=== PATIENT | male | born 1975 | race Hispanic/Latino ===

== ENCOUNTER 2020-01-27 16:00 | Inpatient (IN) | payer MEDICAID, OTHER ==
[~2020-01-27] VITALS: Ht 170.2 cm; Wt 87.7 kg
[~2020-01-27 16:00] MED LIST: FURO-152 PO; LACT10SO9 PO
[2020-01-27 17:33] LABS: BASOPHILS % (AUTO) 1.5 % (0.0-5.0); EOSINOPHILS % (AUTO) 4.6 % (0.0-8.0); HEMATOCRIT 26.2 % (42-54); LYMPHOCYTES % (AUTO) 31.3 % (21.0-51.0); MEAN CORPUSCULAR HEMOGLOBIN 26.9 pg (27.0-33.0); MEAN CORPUSCULAR HGB CONC 32.1 g/dL (32.0-36.0); MONOCYTES % (AUTO) 8.7 % (3.0-13.0); NEUTROPHILS % (AUTO) 53.9 % (40.0-77.0); PLATELET COUNT (AUTO) 45 K/uL (130-400); RED BLOOD CELL COUNT(AUTO) 3.12 MIL/uL (4.50-6.20); RED CELL DISTRIBUTION WIDTH 17.6 % (11.0-15.5)
[2020-01-27 17:53] LABS: INR 1.92 (0.85-1.15); PARTIAL THROMBOPLASTIN TIME 34.9 SEC (26.3-35.5); PROTHROMBIN TIME 19.7 SEC (9.6-11.6)
[2020-01-27 18:11] LABS: ALBUMIN 2.1 g/dL (3.5-5.0); CREATININE 0.7 mg/dL (0.5-1.5); TOTAL PROTEIN, SERUM 7.7 g/dL (6.0-8.3)
[2020-01-27 18:20] LABS: POTASSIUM 2.9 mmol/L (3.5-5.1)
[2020-01-27] MEDS ORDERED: ONDANSETRON HCL 4 MG/2 ML VIAL IV PRN (19:30)
[2020-01-27] MEDS: FAMOTIDINE/PF 20 MG/2 ML VIAL IV SCH (21:00)
[2020-01-27] MEDS: LACTULOSE 20 GM/30 ML UDCUP PO SCH (21:00)
[2020-01-27] MEDS ORDERED: LACTULOSE 20 GM/30 ML UDCUP ONE (22:20)
[2020-01-27] MEDS ORDERED: POTASSIUM CHLORIDE 10% ELIXIR 20 MEQ/15 ML UDCUP ONE (22:20)
[2020-01-27] MEDS ORDERED: POTASSIUM CHLORIDE 20MEQ/100ML 100 ML IV ONE (22:20)
[2020-01-27] MEDS ORDERED: HYDROMORPHONE 1 MG/1 ML AMP ONE (22:21)
[2020-01-27] MEDS ORDERED: FAMOTIDINE/PF 20 MG/2 ML VIAL IV ONE (22:22)
[2020-01-27] MEDS ORDERED: HYDROMORPHONE HCL 0.5 MG/0.5 ML ML IVP ONE (23:30)
[2020-01-28] VITALS (7 sets, daily range): BP systolic 106–161; BP diastolic 57–76
[2020-01-28] MEDS: LIDOCAINE HCL-MPF 1% 2ML VIAL IV PRN ×2 (00:43→09:03)
[2020-01-28] MEDS: POTASSIUM CHLORIDE 20MEQ/100ML 100 ML IV PRN ×2 (00:43→09:03)
[2020-01-28 06:53] LABS: BASOPHILS % (AUTO) 1.2 % (0.0-5.0); EOSINOPHILS % (AUTO) 4.3 % (0.0-8.0); HEMATOCRIT 26.3 % (42-54); LYMPHOCYTES % (AUTO) 36.2 % (21.0-51.0); MEAN CORPUSCULAR HEMOGLOBIN 26.2 pg (27.0-33.0); MEAN CORPUSCULAR HGB CONC 30.8 g/dL (32.0-36.0); MEAN CORPUSCULAR VOLUME 85.1 fL (79-99); MONOCYTES % (AUTO) 14.1 % (3.0-13.0); NEUTROPHILS % (AUTO) 43.6 % (40.0-77.0); PLATELET COUNT (AUTO) 32 K/uL (130-400); RED BLOOD CELL COUNT(AUTO) 3.09 MIL/uL (4.50-6.20); RED CELL DISTRIBUTION WIDTH 17.5 % (11.0-15.5); WHITE BLOOD COUNT (AUTO) 1.6 K/uL (4.8-10.8)
[2020-01-28 07:04] LABS: ALBUMIN 1.9 g/dL (3.5-5.0); BILIRUBIN,TOTAL 2.6 mg/dL (0.2-1.0); CREATININE 0.7 mg/dL (0.5-1.5); MAGNESIUM 1.3 mg/dL (1.80-2.40); TOTAL PROTEIN, SERUM 7.2 g/dL (6.0-8.3)
[2020-01-28 07:08] LABS: POTASSIUM 2.8 mmol/L (3.5-5.1)
[2020-01-28 07:22] LABS: B-TYPE NATRIURETIC PEPTIDE 52 pg/mL (0-100)
[2020-01-28] MEDS: FAMOTIDINE/PF 20 MG/2 ML VIAL IV SCH (09:02)
[2020-01-28] MEDS: LACTULOSE 20 GM/30 ML UDCUP PO SCH ×2 (09:02→20:01)
--- NOTE | 2020-01-28 12:31 | NUR ---
RD Notification Pt admitted for Liver cirrhosis, exacerbation. Pt NPO at time of screen. Diet advanced to GI Soft/Cook. Recommend to add Heart healthy diet, 6 small meals per day, Fluid restriction 1500mL/day secondary to Anasarca/3+ BLE pitting edema. Pt also with PCM;Recommend to add 30mL ProMod BID. RD to continue to monitor. Please notify as additional nutrition concerns arise. Thank you. Addendum: 01/28/20 at [address] Amended: Links added.
[2020-01-28] MEDS: CYANOCOBALAMIN (VITAMIN B-12) 1,000 MCG TABLET PO SCH (12:41)
[2020-01-28] MEDS: FAMOTIDINE 20MG TAB 20 MG TAB PO SCH ×2 (12:41→20:02)
[2020-01-28] MEDS: FOLIC ACID 1 MG TABLET PO SCH (12:41)
[2020-01-28] MEDS: FERROUS SULFATE 325 MG TABLET.DR PO SCH ×2 (12:41→20:02)
[2020-01-28] MEDS: MAGNESIUM OXIDE 400 MG TABLET PO SCH (12:42)
[2020-01-28] MEDS ORDERED: POTASSIUM CHLORIDE 20 MEQ ERTAB PO ONE (12:43)
[2020-01-28] MEDS: FUROSEMIDE 10 MG/ML 4ML VIAL IV SCH (12:43)
[2020-01-28] MEDS: POTASSIUM CHLORIDE 20 MEQ ERTAB PO SCH ×2 (12:44→20:02)
[2020-01-28] MEDS: MAGNESIUM 2GM PREMIX 50ML 50 ML IV PRN (12:48)
[2020-01-28] MEDS: FUROSEMIDE 10 MG/ML 2ML VIAL IV SCH (18:14)
[2020-01-29 04:00] VITALS: BP 115/61
[2020-01-29] MEDS: FUROSEMIDE 10 MG/ML 2ML VIAL IV SCH ×2 (04:37→18:17)
[2020-01-29 05:16] LABS: BASOPHILS % (AUTO) 1.1 % (0.0-5.0); EOSINOPHILS % (AUTO) 4.4 % (0.0-8.0); HEMATOCRIT 27.2 % (42-54); MEAN CORPUSCULAR HEMOGLOBIN 26.9 pg (27.0-33.0); MEAN CORPUSCULAR VOLUME 84.2 fL (79-99); MONOCYTES % (AUTO) 13.7 % (3.0-13.0); NEUTROPHILS % (AUTO) 51.3 % (40.0-77.0); PLATELET COUNT (AUTO) 29 K/uL (130-400); RED BLOOD CELL COUNT(AUTO) 3.23 MIL/uL (4.50-6.20); RED CELL DISTRIBUTION WIDTH 17.2 % (11.0-15.5); WHITE BLOOD COUNT (AUTO) 1.8 K/uL (4.8-10.8)
[2020-01-29 05:38] LABS: BILIRUBIN,TOTAL 3.4 mg/dL (0.2-1.0); CREATININE 0.7 mg/dL (0.5-1.5); POTASSIUM 3.4 mmol/L (3.5-5.1); TOTAL PROTEIN, SERUM 7.4 g/dL (6.0-8.3)
[2020-01-29] MEDS: MAGNESIUM 2GM PREMIX 50ML 50 ML IV PRN (06:39)
[2020-01-29 08:00] VITALS: BP 132/82
[2020-01-29] MEDS: FOLIC ACID 1 MG TABLET PO SCH ×2 (10:01→10:16)
[2020-01-29] MEDS: FERROUS SULFATE 325 MG TABLET.DR PO SCH ×2 (10:01→19:36)
[2020-01-29] MEDS: CYANOCOBALAMIN (VITAMIN B-12) 1,000 MCG TABLET PO SCH ×2 (10:01→10:16)
[2020-01-29] MEDS: FAMOTIDINE 20MG TAB 20 MG TAB PO SCH ×3 (10:01→19:36)
[2020-01-29] MEDS: LACTULOSE 20 GM/30 ML UDCUP PO SCH ×2 (10:02→19:36)
[2020-01-29] MEDS: POTASSIUM CHLORIDE 20 MEQ ERTAB PO SCH ×2 (10:02→13:55)
[2020-01-29] MEDS: MAGNESIUM OXIDE 400 MG TABLET PO SCH (10:16)
[2020-01-29] MEDS: FUROSEMIDE 10 MG/ML 4ML VIAL IV SCH (10:16)
[2020-01-29 11:00] VITALS: BP 117/67
[2020-01-29 16:00] VITALS: BP 114/68
--- NOTE | 2020-01-29 16:19 | NUR ---
INITIAL MET W/ PATIENT AND SUKUMAR AT BEDSIDE FOR DC PLANNING. STATE THEY HAVE JUST RECENTLY STARTED GOING TO [facility] IN [place] ON [address] . INDEPENDENT, NO DME, LIVES W GIRLFRIEND PAULETTE WHO WILL PROVIDE TRANSPORT HOME [employer] PKT GIVEN . RECENT RE ADMIT DCP HOME
[2020-01-29] MEDS: ALBUMIN (HUMAN) 25% 100 ML IV SCH (18:17)
[2020-01-29] MEDS: DEXTROSE 5 % AND 0.9 % NACL 1,000 ML IV SCH (18:18)
[2020-01-29 19:37] VITALS: BP 116/66
[2020-01-29] MEDS ORDERED: HYDROXYZINE HCL 50 MG/ML VIAL IM PRN (21:15)
[2020-01-29] MEDS ORDERED: HYDROXYZINE HCL 25 MG TABLET ONE (21:18)
--- NOTE | 2020-01-29 23:00 | NUR ---
MD CONSULT DR. CRUZ AT NURSES STATION, INFORMED OF PATIENT STATUS , DIAGNOSIS, REVIEWED LABS, PER DR. CRUZ CAN FOLLOW UP OUTPATIENT , NO NEED TO SEE PATIENT AT THIS TIME
[2020-01-30] MEDS: ALBUMIN (HUMAN) 25% 100 ML IV SCH ×3 (00:59→16:29)
[2020-01-30 04:00] VITALS: BP 103/65
[2020-01-30] MEDS: FUROSEMIDE 10 MG/ML 2ML VIAL IV SCH (04:41)
[2020-01-30] MEDS: DEXTROSE 5 % AND 0.9 % NACL 1,000 ML IV SCH (04:41)
[2020-01-30 08:00] VITALS: BP 114/73
[2020-01-30] MEDS: FOLIC ACID 1 MG TABLET PO SCH ×2 (09:15→11:13)
[2020-01-30] MEDS: FERROUS SULFATE 325 MG TABLET.DR PO SCH ×2 (09:15→20:06)
[2020-01-30] MEDS: LACTULOSE 20 GM/30 ML UDCUP PO SCH ×2 (09:15→20:06)
[2020-01-30] MEDS: CYANOCOBALAMIN (VITAMIN B-12) 1,000 MCG TABLET PO SCH ×2 (09:15→11:13)
[2020-01-30] MEDS: FAMOTIDINE 20MG TAB 20 MG TAB PO SCH ×3 (09:15→20:06)
[2020-01-30 11:00] VITALS: BP 130/70
[2020-01-30] MEDS: MAGNESIUM OXIDE 400 MG TABLET PO SCH (11:13)
[2020-01-30] MEDS: FUROSEMIDE 10 MG/ML 4ML VIAL IV SCH (11:13)
[2020-01-30] MEDS: SPIRONOLACTONE 25 MG TAB PO SCH (11:37)
[2020-01-30 16:00] VITALS: BP 138/82
[2020-01-30] MEDS: FUROSEMIDE 10 MG/ML 4ML VIAL IVP SCH (17:23)
[2020-01-30 19:47] VITALS: BP 138/80
[2020-01-30] MEDS: HYDROXYZINE HCL 25 MG TABLET PO PRN (20:06)
[2020-01-30 23:10] VITALS: BP 120/64
[2020-01-31 02:47] VITALS: BP 108/54
[2020-01-31] MEDS: FUROSEMIDE 10 MG/ML 4ML VIAL IVP SCH ×2 (05:27→17:34)
[2020-01-31 08:00] VITALS: BP 116/60
[2020-01-31] MEDS ORDERED: ALBUMIN (HUMAN) 25% 100 ML IV SCH (09:00)
[2020-01-31] MEDS: ALBUMIN (HUMAN) 25% 100 ML IV SCH (09:16)
[2020-01-31] MEDS: LACTULOSE 20 GM/30 ML UDCUP PO SCH ×2 (09:17→20:18)
[2020-01-31] MEDS: SPIRONOLACTONE 25 MG TAB PO SCH ×2 (09:18→20:14)
[2020-01-31] MEDS: FOLIC ACID 1 MG TABLET PO SCH ×2 (09:18→09:25)
[2020-01-31] MEDS: CYANOCOBALAMIN (VITAMIN B-12) 1,000 MCG TABLET PO SCH ×2 (09:18→09:25)
[2020-01-31] MEDS: FERROUS SULFATE 325 MG TABLET.DR PO SCH ×2 (09:18→20:13)
[2020-01-31] MEDS: FAMOTIDINE 20MG TAB 20 MG TAB PO SCH ×3 (09:18→20:14)
[2020-01-31] MEDS: FUROSEMIDE 10 MG/ML 4ML VIAL IV SCH (09:25)
[2020-01-31] MEDS: MAGNESIUM OXIDE 400 MG TABLET PO SCH (09:25)
[2020-01-31 11:00] VITALS: BP 111/63
[2020-01-31 12:04] LABS: HEMATOCRIT 23.9 % (42-54); MEAN CORPUSCULAR HGB CONC 31.8 g/dL (32.0-36.0); MEAN CORPUSCULAR VOLUME 84.8 fL (79-99); PLATELET COUNT (AUTO) 31 K/uL (130-400); RED BLOOD CELL COUNT(AUTO) 2.82 MIL/uL (4.50-6.20); RED CELL DISTRIBUTION WIDTH 17.4 % (11.0-15.5); WHITE BLOOD COUNT (AUTO) 1.7 K/uL (4.8-10.8)
[2020-01-31 12:14] LABS: CREATININE 0.8 mg/dL (0.5-1.5); POTASSIUM 3.1 mmol/L (3.5-5.1)
[2020-01-31 12:19] LABS: ALBUMIN 2.6 g/dL (3.5-5.0); BILIRUBIN,TOTAL 3.1 mg/dL (0.2-1.0); TOTAL PROTEIN, SERUM 7.3 g/dL (6.0-8.3)
[2020-01-31] MEDS ORDERED: POTASSIUM CHLORIDE 20MEQ/100ML 100 ML IV PRN (13:15)
[2020-01-31] MEDS ORDERED: POTASSIUM CHLORIDE 10% ELIXIR 20 MEQ/15 ML UDCUP PO PRN (13:15)
[2020-01-31] MEDS ORDERED: LIDOCAINE HCL-MPF 1% 2ML VIAL IV PRN (13:15)
[2020-01-31] MEDS: POTASSIUM CHLORIDE 20 MEQ ERTAB PO PRN ×4 (13:24→20:17)
[2020-01-31 13:36] LABS: EOSINOPHILS % (MANUAL) 4 % (1-6); LYMPHOCYTES % (MANUAL) 12 % (22-44); MONOCYTES % (MANUAL) 16 % (2-9); PLATELET MORPHOLOGY COMMENT MARKED DECREASE; SEGMENTED NEUTROPHILS % 68 % (40-70)
[2020-01-31 15:53] VITALS: BP 125/71
[2020-01-31 19:01] VITALS: BP 117/62
[2020-01-31] MEDS: HYDROXYZINE HCL 25 MG TABLET PO PRN (21:28)
[2020-01-31 23:27] VITALS: BP 118/67
[2020-02-01 03:46] VITALS: BP 116/58
[2020-02-01 05:03] LABS: BASOPHILS % (AUTO) 0.5 % (0.0-5.0); EOSINOPHILS % (AUTO) 3.9 % (0.0-8.0); HEMATOCRIT 25.5 % (42-54); MEAN CORPUSCULAR HEMOGLOBIN 27.1 pg (27.0-33.0); MEAN CORPUSCULAR HGB CONC 31.8 g/dL (32.0-36.0); MEAN CORPUSCULAR VOLUME 85.3 fL (79-99); MONOCYTES % (AUTO) 15.5 % (3.0-13.0); NEUTROPHILS % (AUTO) 51.6 % (40.0-77.0); PLATELET COUNT (AUTO) 30 K/uL (130-400); RED BLOOD CELL COUNT(AUTO) 2.99 MIL/uL (4.50-6.20); RED CELL DISTRIBUTION WIDTH 17.4 % (11.0-15.5); WHITE BLOOD COUNT (AUTO) 2.1 K/uL (4.8-10.8)
[2020-02-01 05:18] LABS: ALBUMIN 2.5 g/dL (3.5-5.0); BILIRUBIN,TOTAL 2.3 mg/dL (0.2-1.0); CREATININE 0.7 mg/dL (0.5-1.5); POTASSIUM 3.4 mmol/L (3.5-5.1); TOTAL PROTEIN, SERUM 7.1 g/dL (6.0-8.3)
[2020-02-01] MEDS: FUROSEMIDE 10 MG/ML 4ML VIAL IVP SCH (05:29)
--- NOTE | 2020-02-01 08:00 | NUR ---
K+ LV 3.4 20 MEQ PO KCL GIVEN
[2020-02-01] MEDS: LACTULOSE 20 GM/30 ML UDCUP PO SCH ×2 (08:07→20:12)
[2020-02-01] MEDS: ALBUMIN (HUMAN) 25% 100 ML IV SCH (08:07)
[2020-02-01] MEDS: FAMOTIDINE 20MG TAB 20 MG TAB PO SCH ×2 (08:09→20:12)
[2020-02-01] MEDS: CYANOCOBALAMIN (VITAMIN B-12) 1,000 MCG TABLET PO SCH (08:09)
[2020-02-01] MEDS: FERROUS SULFATE 325 MG TABLET.DR PO SCH ×2 (08:09→20:12)
[2020-02-01] MEDS: FOLIC ACID 1 MG TABLET PO SCH (08:09)
[2020-02-01] MEDS: SPIRONOLACTONE 25 MG TAB PO SCH ×2 (08:09→20:12)
[2020-02-01] MEDS: POTASSIUM CHLORIDE 20 MEQ ERTAB PO PRN ×2 (08:10→10:38)
[2020-02-01 08:23] VITALS: BP 127/68
[2020-02-01] MEDS: MAGNESIUM 2GM PREMIX 50ML 50 ML IV PRN (10:39)
[2020-02-01] MEDS: MAGNESIUM OXIDE 400 MG TABLET PO SCH (10:39)
--- NOTE | 2020-02-01 10:43 | NUR ---
k+ 3.4, 2ND OF OF 3 DOSES OF 20MEQ KCL GIVEN, MAGNESIUM 1.7, 2GM MAGNESIUM SLOW IVPB INITIATED AT 25CC/HR.
[2020-02-01 11:59] VITALS: BP 111/68
--- NOTE | 2020-02-01 16:23 | NUR ---
RD FOLLOW UP Pt tolerating current diet order with no report of GI distress, good PO intake at 100%. RD provided Cirrhosis Nutrition Education. Pt Verbalized understanding. RD to continue to monitor. Please notify RD as additional nutrition concerns arise. Thank you. Addendum: 02/01/20 at [address] Amended: Links added.
--- NOTE | 2020-02-01 16:25 | NUR ---
NUTRITION EDUCATION BRITNI provided Cirrhosis nutrition education. RD provided reference materials and handouts. Pt verbalized understanding. RD to continue to monitor. Addendum: 02/01/20 at [address] Amended: Links added.
[2020-02-01 16:53] VITALS: BP 117/59
[2020-02-01 20:00] VITALS: BP 117/66
[2020-02-01] MEDS: HYDROXYZINE HCL 25 MG TABLET PO PRN (20:12)
[2020-02-02] VITALS (9 sets, daily range): BP systolic 106–127; BP diastolic 62–78
[2020-02-02 05:08] LABS: EOSINOPHILS % (AUTO) 4.8 % (0.0-8.0); HEMATOCRIT 25.2 % (42-54); MEAN CORPUSCULAR HEMOGLOBIN 27.3 pg (27.0-33.0); MEAN CORPUSCULAR HGB CONC 31.7 g/dL (32.0-36.0); MONOCYTES % (AUTO) 20.1 % (3.0-13.0); NEUTROPHILS % (AUTO) 51.6 % (40.0-77.0); PLATELET COUNT (AUTO) 29 K/uL (130-400); RED BLOOD CELL COUNT(AUTO) 2.93 MIL/uL (4.50-6.20); RED CELL DISTRIBUTION WIDTH 18.3 % (11.0-15.5); WHITE BLOOD COUNT (AUTO) 2.1 K/uL (4.8-10.8)
[2020-02-02 05:32] LABS: ALBUMIN 2.6 g/dL (3.5-5.0); BILIRUBIN,TOTAL 2.5 mg/dL (0.2-1.0); CREATININE 0.8 mg/dL (0.5-1.5); MAGNESIUM 1.6 mg/dL (1.80-2.40); POTASSIUM 3.3 mmol/L (3.5-5.1)
[2020-02-02] MEDS: MAGNESIUM 2GM PREMIX 50ML 50 ML IV PRN (06:28)
[2020-02-02] MEDS: POTASSIUM CHLORIDE 20 MEQ ERTAB PO PRN ×3 (06:29→18:37)
[2020-02-02] MEDS: LACTULOSE 20 GM/30 ML UDCUP PO SCH (09:39)
[2020-02-02] MEDS: ALBUMIN (HUMAN) 25% 100 ML IV SCH (09:39)
[2020-02-02] MEDS: FAMOTIDINE 20MG TAB 20 MG TAB PO SCH ×2 (09:40→21:00)
[2020-02-02] MEDS: FERROUS SULFATE 325 MG TABLET.DR PO SCH ×2 (09:40→20:28)
[2020-02-02] MEDS: FOLIC ACID 1 MG TABLET PO SCH (09:40)
[2020-02-02] MEDS: CYANOCOBALAMIN (VITAMIN B-12) 1,000 MCG TABLET PO SCH (09:40)
[2020-02-02] MEDS: FUROSEMIDE 40 MG TABLET PO SCH (09:40)
[2020-02-02] MEDS: SPIRONOLACTONE 25 MG TAB PO SCH ×2 (09:40→20:28)
[2020-02-02] MEDS: MAGNESIUM OXIDE 400 MG TABLET PO SCH (11:30)
[2020-02-02] MEDS ORDERED: FOLI1 PO (12:50)
[2020-02-02] MEDS ORDERED: CYAN-52 PO (12:50)
[2020-02-02] MEDS ORDERED: FURO40TA7 PO (12:50)
[2020-02-02] MEDS ORDERED: LACT PO (12:50)
[2020-02-02] MEDS ORDERED: SPIR25TA PO (12:50)
[2020-02-02] MEDS ORDERED: FERR324T4 PO (12:50)
[2020-02-02] MEDS ORDERED: MAGOX PO (12:50)
[2020-02-02] MEDS ORDERED: POTA10CA44 PO (12:50)
--- NOTE | 2020-02-02 15:09 | NUR ---
PT IS C/O FEELING LIKE "I HAVE THE FLUE OR SOMETHING, I FELT WEAK AND LIGHT HEADED WHEN I GOT UP TO THE BATHROOM, AND MY MUSCLES ARE ACHING, IT STARTED AT AROUND NOON TODAY"; I HAVE CALLED DR FELIPE AND INFORMED HIM OF PT'S CO SICK FEELINGS; HE STATED HE WOULD COME AND SEE THE PATIENT IN ABOUT 1/2 AN HOUR.
--- NOTE | 2020-02-02 15:41 | NUR ---
DR FELIPE HERE TO SEE PATIENT AND HE STATED TO CANCEL D/C FOR TODAY, SWAB FOR FLU A&B AND HAVE DR RODRIGUEZ SEE PT IN AM. I HAVE INFORMED PT AND HE IS OK WITH NOT GOING HOME TODAY
[2020-02-02] MEDS: HYDROXYZINE HCL 25 MG TABLET PO PRN (20:30)
[2020-02-03] VITALS: BP 124/67
[2020-02-03 04:00] VITALS: BP 93/50
[2020-02-03 06:05] LABS: BASOPHILS % (AUTO) 0.5 % (0.0-5.0); EOSINOPHILS % (AUTO) 3.3 % (0.0-8.0); HEMATOCRIT 24.9 % (42-54); LYMPHOCYTES % (AUTO) 28.8 % (21.0-51.0); MEAN CORPUSCULAR HEMOGLOBIN 28.1 pg (27.0-33.0); MEAN CORPUSCULAR HGB CONC 32.5 g/dL (32.0-36.0); MEAN CORPUSCULAR VOLUME 86.5 fL (79-99); MONOCYTES % (AUTO) 22.8 % (3.0-13.0); NEUTROPHILS % (AUTO) 44.6 % (40.0-77.0); PLATELET COUNT (AUTO) 27 K/uL (130-400); RED BLOOD CELL COUNT(AUTO) 2.88 MIL/uL (4.50-6.20); RED CELL DISTRIBUTION WIDTH 18.7 % (11.0-15.5); WHITE BLOOD COUNT (AUTO) 1.8 K/uL (4.8-10.8)
[2020-02-03 06:21] LABS: ALBUMIN 2.7 g/dL (3.5-5.0); BILIRUBIN,TOTAL 2.5 mg/dL (0.2-1.0); MAGNESIUM 1.6 mg/dL (1.80-2.40); POTASSIUM 3.5 mmol/L (3.5-5.1); TOTAL PROTEIN, SERUM 7.1 g/dL (6.0-8.3)
[2020-02-03 06:53] LABS: CREATININE 0.7 mg/dL (0.5-1.5)
[2020-02-03 08:15] VITALS: BP 119/59
[2020-02-03] MEDS: CYANOCOBALAMIN (VITAMIN B-12) 1,000 MCG TABLET PO SCH (08:44)
[2020-02-03] MEDS: FOLIC ACID 1 MG TABLET PO SCH (08:44)
[2020-02-03] MEDS: LACTULOSE 20 GM/30 ML UDCUP PO SCH (08:45)
[2020-02-03] MEDS: FERROUS SULFATE 325 MG TABLET.DR PO SCH ×2 (08:45→19:53)
[2020-02-03] MEDS: FAMOTIDINE 20MG TAB 20 MG TAB PO SCH ×2 (08:48→19:53)
[2020-02-03 11:13] VITALS: BP 92/49
[2020-02-03] MEDS: MAGNESIUM OXIDE 400 MG TABLET PO SCH (11:29)
[2020-02-03] MEDS: MAGNESIUM 2GM PREMIX 50ML 50 ML IV PRN (12:15)
[2020-02-03] MEDS: POTASSIUM CHLORIDE 20 MEQ ERTAB PO PRN (12:16)
[2020-02-03 16:57] VITALS: BP 123/74
[2020-02-03] MEDS: HYDROXYZINE HCL 25 MG TABLET PO PRN (19:58)
[2020-02-03 20:01] VITALS: BP 125/78
[2020-02-04 00:10] VITALS: BP 105/63
[2020-02-04 04:00] VITALS: BP 97/45
[2020-02-04 04:49] LABS: BASOPHILS % (AUTO) 0.5 % (0.0-5.0); EOSINOPHILS % (AUTO) 5.1 % (0.0-8.0); HEMATOCRIT 26.1 % (42-54); LYMPHOCYTES % (AUTO) 26.6 % (21.0-51.0); MEAN CORPUSCULAR HEMOGLOBIN 27.4 pg (27.0-33.0); MEAN CORPUSCULAR HGB CONC 31.8 g/dL (32.0-36.0); MEAN CORPUSCULAR VOLUME 86.1 fL (79-99); MONOCYTES % (AUTO) 23.8 % (3.0-13.0); NEUTROPHILS % (AUTO) 43.5 % (40.0-77.0); PLATELET COUNT (AUTO) 26 K/uL (130-400); RED BLOOD CELL COUNT(AUTO) 3.03 MIL/uL (4.50-6.20); RED CELL DISTRIBUTION WIDTH 19.1 % (11.0-15.5); WHITE BLOOD COUNT (AUTO) 2.1 K/uL (4.8-10.8)
[2020-02-04 05:12] LABS: ALBUMIN 2.6 g/dL (3.5-5.0); BILIRUBIN,TOTAL 2.2 mg/dL (0.2-1.0); CREATININE 0.6 mg/dL (0.5-1.5); MAGNESIUM 1.9 mg/dL (1.80-2.40); POTASSIUM 4.1 mmol/L (3.5-5.1)
[2020-02-04 07:32] LABS: EOSINOPHILS % (MANUAL) 2 % (1-6); LYMPHOCYTES % (MANUAL) 20 % (22-44); MONOCYTES % (MANUAL) 22 % (2-9); SEGMENTED NEUTROPHILS % 56 % (40-70)
[2020-02-04 07:33] LABS: MAN.DIFF COMMENT-IMPRESSION MANUAL DIFFERENTIAL
[2020-02-04 08:32] VITALS: BP 96/56
[2020-02-04] MEDS: FAMOTIDINE 20MG TAB 20 MG TAB PO SCH ×2 (09:00→21:00)
[2020-02-04] MEDS: FERROUS SULFATE 325 MG TABLET.DR PO SCH ×2 (09:35→21:39)
[2020-02-04] MEDS: LACTULOSE 20 GM/30 ML UDCUP PO SCH (09:35)
[2020-02-04] MEDS: CYANOCOBALAMIN (VITAMIN B-12) 1,000 MCG TABLET PO SCH (09:35)
[2020-02-04] MEDS: FOLIC ACID 1 MG TABLET PO SCH (09:35)
[2020-02-04] MEDS: MAGNESIUM OXIDE 400 MG TABLET PO SCH (11:31)
[2020-02-04 11:34] VITALS: BP 124/67
[2020-02-04 16:58] VITALS: BP 117/67
[2020-02-04 19:52] VITALS: BP 117/67
[2020-02-04] MEDS: HYDROXYZINE HCL 25 MG TABLET PO PRN (21:39)
[2020-02-05 00:20] VITALS: BP 92/46
[2020-02-05 04:00] VITALS: BP 103/57
[2020-02-05 05:43] LABS: BASOPHILS % (AUTO) 0.6 % (0.0-5.0); EOSINOPHILS % (AUTO) 5.1 % (0.0-8.0); HEMATOCRIT 26.5 % (42-54); LYMPHOCYTES % (AUTO) 33.7 % (21.0-51.0); MEAN CORPUSCULAR HEMOGLOBIN 27.4 pg (27.0-33.0); MEAN CORPUSCULAR HGB CONC 31.7 g/dL (32.0-36.0); MEAN CORPUSCULAR VOLUME 86.3 fL (79-99); PLATELET COUNT (AUTO) 32 K/uL (130-400); RED BLOOD CELL COUNT(AUTO) 3.07 MIL/uL (4.50-6.20); RED CELL DISTRIBUTION WIDTH 19.6 % (11.0-15.5); WHITE BLOOD COUNT (AUTO) 1.8 K/uL (4.8-10.8)
[2020-02-05 05:58] LABS: CREATININE 0.6 mg/dL (0.5-1.5)
[2020-02-05 08:00] VITALS: BP 108/64
[2020-02-05] MEDS: FAMOTIDINE 20MG TAB 20 MG TAB PO SCH (09:00)
[2020-02-05] MEDS: FERROUS SULFATE 325 MG TABLET.DR PO SCH (09:51)
[2020-02-05] MEDS: FOLIC ACID 1 MG TABLET PO SCH (09:52)
[2020-02-05] MEDS: LACTULOSE 20 GM/30 ML UDCUP PO SCH (09:52)
[2020-02-05] MEDS: CYANOCOBALAMIN (VITAMIN B-12) 1,000 MCG TABLET PO SCH (09:52)
[2020-02-05] MEDS: FUROSEMIDE 40 MG TABLET PO SCH (09:57)
[2020-02-05] MEDS ORDERED: FUROSEMIDE 40 MG TABLET ONE (09:57)
[2020-02-05] MEDS: MAGNESIUM OXIDE 400 MG TABLET PO SCH (11:30)
[2020-02-05 11:53] VITALS: BP 120/48
[2020-02-05 16:00] VITALS: BP 117/67
--- NOTE | 2020-02-05 17:04 | NUR ---
DISCHARGE INSTRUCTIONS GIVEN TO PATIENT. PATIENTS MOTHER AT BEDSIDE. MADE AWARE OF ALL NEW PRESCRIPTIONS SENT ELECTRONICALLY, MADE AWARE OF FOLLOW UP APPOINTMENT WITH DR. CRUZ AND AWARE OF NEED TO FOLLOW UP WITH PCP. IV REMOVED. PATIENT AT THIS TIME DENIES ANY PAIN, AMBULATING IN ROOM, ALERT AND ORIENTED X3. PATIENT WILL BE TRANSPORTED HOME BY FAMILY, PENDING RIDE
[2020-02-05] MEDS ORDERED: LACTULOSE 20 GM/30 ML UDCUP PO SCH (21:00)
== END 2020-02-05 18:40 | disposition home or self-care (01) | DRG 433 ==
LOC: EDH 16:00 → EDHIP 16:01 → 4AH 01-28 00:19 → 4DH 02-03 16:17
PROVIDERS: ADMIT Internal Medicine; ATTEND Internal Medicine
DX: K70.31 Alcoholic cirrhosis of liver with ascites (principal); D61.818 Other pancytopenia; E87.6 Hypokalemia; E66.9 Obesity, unspecified; E87.70 Fluid overload, unspecified; E83.42 Hypomagnesemia; T50.2X5A Adverse effect of carbonic-anhydrase inhibitors, benzothiadiazides and other diuretics, initial encounter; D73.1 Hypersplenism; Z68.30 Body mass index [BMI] 30.0-30.9, adult; Z82.5 Family history of asthma and other chronic lower respiratory diseases; Z90.49 Acquired absence of other specified parts of digestive tract; Z88.8 Allergy status to other drugs, medicaments and biological substances; Y92.89 Other specified places as the place of occurrence of the external cause
CPT/HCPCS: 36415; 71045; 76705; 80048; 80053; 82140; 82550; 83735; 83880; 84132; 84484; 85025; 85610; 85730; 87804; 93005; G0378; J1170; J1940; J3475; J3480; J3490; J7042; P9046